=== PATIENT | female | born 1960 ===

== ENCOUNTER 2018-08-26 05:52 | Day surgery (SDC) | payer OTHER, SELFPAY ==
[2018-08-10 16:50] VITALS: BMI 31.4
[2018-08-26] VITALS (9 sets, daily range): BP systolic 100–144; BP diastolic 67–85; PULSE 64–76; RESP 11–17; TEMP 36.1–36.6; O2SAT 92–99; BMI 30.7
--- NOTE | 2018-08-26 | PATH_ITS ---
[facility] Accession Number: [id number] . 01 Material submitted: . thigh - LEFT LATERAL THIGH LIPOMA WITH SKIN NEVUS . 01 Diagnosis: Skin and Soft Tissue, Left Lateral Thigh, Excision: Intradermal nevus. Mature adipose tissue, consistent with lipoma. MRV/08/30/2018 . 01 Electronically signed: . Beverly Bello MD, Pathologist NPI- [id number] . 01 Gross description: . Received in formalin, labeled left posterior thigh lipoma with skin nevus, is a piece of love-yellow rubbery adipose tissue (3.8 x 1.5 x 0.7 cm) partially covered by an ellipse of love-white smooth shiny skin (1.1 x 0.3 x 0.1 cm). The adipose tissue has a homogeneous unremarkable cut surface. The skin ellipse contains a dark brown firm papule (0.3 x 0.3 x 0.1 cm). The adipose tissue and resection margin are inked blue. Portrait Artist adipose tissue is submitted in cassette A1. The ellipse tips are submitted in cassette A2, and the remaining ellipse is bisected and entirely submitted in cassette A3. ([id number]) /MRV . 01 Pathologist provided ICD-10: D22.9, D17.9 . 01 CPT . 157613 Performed at: [address], [place], [place] [id number] MD Delbert Ramos MD Phone: [phone]
[2018-08-26] MEDS: LACTATED RINGERS 1,000 ML 42 ML IV (07:26)
--- NOTE | 2018-08-26 07:47 | PM.PREOP ---
Pre-operative Note Interval Note History & Physical reviewed/Exam performed by Physician: Yes Changes to H&P: No
--- NOTE | 2018-08-26 08:12 | SUR.OPER ---
Addendum entered by Chuck Carroll R.N. 08/26/18 08:13: Original Note: Lateral on padded OR bed, head on pillow, gel axillary roll in place, bottom leg bent with gel pad under knee to foot, upper leg straight and supported with pillows. Upper arm supported by pillows and secured over bottom arm to padded arm board. Safety belt at hip, tape over blanket lower legs.
[2018-08-26] MEDS: BUPIVACAINE 0.5% W/ EPI (PF) VIAL 30 ML INJ (08:21)
--- NOTE | 2018-08-26 08:43 | PM.OP.1 ---
Operative Date/Time/Diagnoses Date of procedure: 08/26/18 Time of procedure: 08:29 Pre-op diagnosis: Patient with a mass behind her left knee clinically a lipoma. Symptomatic. Causes pain. Post-op diagnosis: same Procedure & Clinicians Procedure: Excision of 3 cm mass Same procedure as scheduled: Yes Indications: Symptomatic mass Surgeon: Devendra Conrad Click Yes if Unassisted: Yes Anesthesia Type: General Operative Notes Findings: Fatty mass Estimated Blood Loss (mL): 5 Procedure in detail: The patient was placed in the left lateral decubitus position leaned over slightly after undergoing general LMA anesthesia. This gave me the best access to this lesion which was marked preoperatively. The areas prepped and draped. A transverse elliptical incision was made overlying this mass because of a nevus that was immediately overlying it. Down in the subcu. The mass was identified from surrounding structures and removed. It appeared to be a large fatty globule. hemostasis was achieved with cautery. Local anesthetic was infiltrated. The subcu was closed with interrupted 300 Vicryl. The skin was closed with 4 0 nylon interrupted vertical mattress sutures. Dressing was applied the patient was awakened and taken to the recovery area in good condition. Complications: none Condition: stable Disposition: PACU
--- NOTE | 2018-08-26 08:54 | SUR.PHASEI ---
C/O feeling dizzy. VS stable.
== END 2018-08-26 09:31 | disposition home or self-care (01) ==
PROVIDERS: PCP Family Medicine; Visit Provider Specialist
PROC: (CPT 27337; principal; 2018-08-26 07:45)
DX: D17.24 Benign lipomatous neoplasm of skin and subcutaneous tissue of left leg (principal); D22.9 Melanocytic nevi, unspecified
CPT/HCPCS: 27337; 88305; J1100; J2250; J2405; J2704; J3010

== ENCOUNTER → 2021-09-20 13:04 | Outpatient (CLI) | payer OTHER, SELFPAY ==
[2021-09-20 17:26] LABS: COVID19 -Nasal RAPID Negative (Negative)
== END ==
PROVIDERS: PCP Family Medicine; Visit Provider Surgery
DX: Z20.822 Contact with and (suspected) exposure to COVID-19 (principal); Z01.812 Encounter for preprocedural laboratory examination
CPT/HCPCS: 87635; C9803

== ENCOUNTER 2021-09-23 13:42 | Day surgery (SDC) | payer OTHER, SELFPAY ==
[2021-09-23 14:24] VITALS: BP 115/83; PULSE 114; RESP 16; TEMP 36.3; O2SAT 98
[2021-09-23 14:25] VITALS: BMI 32.2
[2021-09-23] MEDS: SODIUM CHLORIDE 0.9% 1,000 ML 84 ML IV (14:49)
--- NOTE | 2021-09-23 15:26 | PM.HP.1 ---
History of Present Illness History of Present Illness Date Patient Seen: 09/23/21 Time Patient Seen: 15:26 Chief complaint: SDC Narrative: Here today for colon cancer screening. Patient History Medical History Asthma Lipoma of lower extremity Surgical History History of ear surgery (~2008) History of surgery (~2008) Family & Social History Family History Mother Hypertension Social History: household members spouse Tobacco & Substance use: Smoking Status Never smoker alcohol intake never Substance Use Type does not use Meds Home Medications and Allergies Home Medications Medication Instructions Recorded Confirmed Type fexofenadine 30 mg disintegrating 60 mg PO BID 08/04/18 09/23/21 History tablet albuterol sulfate 90 mcg/actuation 2 puff inhalation Q4-6H PRN 08/26/18 09/23/21 History aerosol inhaler Allergic Symptoms hydrochlorothiazide 25 mg tablet 1 tab DAILY 09/23/21 09/23/21 History lisinopril 20 mg tablet 1 tab DAILY 09/23/21 09/23/21 History metformin 500 mg tablet,extended 1 tab PO DAILY 09/23/21 09/23/21 History release 24 hr Allergies Allergy/AdvReac Type Severity Reaction Status Date / Time No Known Drug Allergies Allergy Verified 09/23/21 14:21 Review of Systems Review of Systems ROS: Yes All systems reviewed with the patient and are negative except as otherwise documented Exam Vital Signs (past 8 hours): - 09/23/21 14:24 Temperature 97.4 F L Pulse Rate 114 H Respiratory Rate 16 Blood Pressure 115/83 Pulse Oximetry 98 Oxygen Delivery Method Room Air Oxygen Delivery Method Room Air Const General: cooperative HENMT Head: normal to inspection Eyes General: appearance normal, both eyes and all related structures Neck Neck: normal visual inspection Chest Chest: normal inspection of the chest Resp Effort & Inspection: normal respiratory effort Cardio Rate: regular rate GI Inspection: normal to inspection Skin General: no rashes or lesions noted Neuro General: patient alert and patient awake Extrem General: normal to inspection and no pedal edema Psych Appearance: grossly normal Assessment & Plan Assessment & Plan narrative: 61-year-old female here for colon cancer screening. Colonoscopy is pursued today. Time Spent With Patient Critical Care time: I spent a total of [] minutes of critical care time on this patient's care today; this time is exclusive of procedural time.
--- NOTE | 2021-09-23 15:27 | PM.PREOP ---
Pre-operative Note COVID-19 COVID-19 status: Negative Result date/Date tested (Pos, Neg/Pending): 09/20/21 Criteria for continued procedure: Possibility delay results in more complex future surgery or treatment Interval Note History & Physical reviewed/Exam performed by Physician: Yes Changes to H&P: No ASA Class (for procedural sedation): II
--- NOTE | 2021-09-23 16:40 | PM.OP.COLON ---
Operative Date/Time/Diagnoses Date of procedure: 09/23/21 Time of procedure: 16:40 Pre-op diagnosis: Colon cancer screening Post-op diagnosis: same Procedure & Clinicians Study performed: Colonoscopy Same procedure as scheduled: Yes Indications: Colon cancer screening Surgeon: Porfirio Walsh Procedure Notes SCOAP/Timeout: Done Procedure in detail: After the risks and benefits were explained, written and verbal informed consent was obtained. The patient was brought into the procedure room and placed into the left lateral decubitus position. Please see nurse player development executive notes for sedation details. Digital rectal examination was accomplished. The scope was introduced into the patient and advanced under direct visualization to the cecum as identified by the appendiceal orifice and ileocecal valve. The scope was slowly withdrawn to carefully examine the mucosa for any defects or lesions. Comprehensive imaging was accomplished throughout the rectum including the dentate line. The colon was decompressed, the scope was then removed from the patient who tolerated the procedure well. Adult colonoscope Bowel prep adequate Scope withdrawal time: 6 minutes Sedation minutes: 11 Specimen(s): none sent Complications: none Impression: No significant polyps mass lesions or inflammatory features identified throughout. Endoscopic diagnosis Visually unremarkable colonoscopy to cecum Post-procedure Plan for aftercare: Repeat colonoscopy 10 years time; sooner should symptoms warrant an earlier exam. Disposition: PACU
[2021-09-23 16:42] VITALS: BP 97/58; PULSE 99; RESP 18; TEMP 36.6; O2SAT 99
[2021-09-23 16:47] VITALS: BP 95/60; PULSE 94; RESP 14; O2SAT 100
[2021-09-23 16:55] VITALS: BP 118/58; PULSE 92; RESP 16; O2SAT 100
[2021-09-23 16:59] VITALS: BP 114/70; PULSE 83; RESP 16; O2SAT 100
== END 2021-09-23 17:12 | disposition home or self-care (01) ==
PROVIDERS: PCP Family Medicine; Referring Provider Internal Medicine Gastroenterology; Visit Provider Internal Medicine Gastroenterology
PROC: 0DJD8ZZ Inspection of Lower Intestinal Tract, Via Natural or Artificial Opening Endoscopic (ICD-10-PCS; CPT 45378; principal; 2021-09-23 15:00)
DX: Z12.11 Encounter for screening for malignant neoplasm of colon (principal); J45.909 Unspecified asthma, uncomplicated
CPT/HCPCS: 45378; 82962; J2704